=== PATIENT | female | born 1985 | race Caucasian/White ===

== ENCOUNTER 2016-10-07 21:29 | Emergency (ER) | payer OTHER ==
[~2016-10-07] VITALS: Ht 162.6 cm; Wt 60.8 kg
[~2016-10-07 21:29] MED LIST: FLONASE16 G1 BOTH NARES; MUCUS ER600 MG PO; NOHOMEMEDS; PROAIR HFA8.5 GM IH; PROVENTIL,2.5 MG/3 M IH; ROBITUSSIN NIG118 ML PO; TESSALON PERLE100 MG PO
[2016-10-07 21:54] LABS: MCH 28.9 PG (29.0-34.0); MCHC 34.5 G/DL (30.0-36.0); MCV 83.8 FL (83-99); MEAN PLAT.VOLUME 9.2 uM^3 (9.5-12.4); PLATELET COUNT 191 K/uL (156-360); RBC DIS.WIDTH-SD 36.5 % (39-53); RED BLOOD COUNT 5.01 M/uL (3.80-5.20); WHITE BLOOD COUNT 4.3 K/uL (4.1-10.2)
[2016-10-07 22:04] LABS: CHLORIDE 108 mEq/L (99-109); POTASSIUM 3.8 mEq/L (3.7-5.4); SODIUM 139 mEq/L (136-147)
[2016-10-07 22:05] LABS: GLUCOSE 106 mg/dL (70-99)
[2016-10-07 22:07] LABS: ANION GAP 9 MEQ/L (2-14)
[2016-10-07 22:09] LABS: GFR ESTIMATE (CALCULATED) > 59 mL/min/
[2016-10-07 22:10] LABS: UREA NITROGEN (BUN) 8 mg/dL (9-23)
[2016-10-07 22:13] LABS: D-DIMER ELISA 0.31 mg/L FEU (< 0.57)
[2016-10-07 22:16] LABS: TROP-I INTERPRETATION NEGATIVE; TROPONIN-I < 0.01 ng/mL (0.0-0.30)
[2016-10-07 22:30] LABS: ADD MIUA? NO; BILIRUBIN NEGATIVE; BLOOD NEGATIVE; COLOR STRAW ((YELLOW)); GLUCOSE (STRIP) NEGATIVE; INTERNAL CONTROL VALID? YES; KETONES NEGATIVE; LEUKOCYTES NEGATIVE; NITRITE NEGATIVE; PROTEIN (STRIP) NEGATIVE; SPECIFIC GRAVITY 1.006 (1.000-1.030); UCUL ADDED? NO; UROBILINOGEN 0.2 MG/DL (0.2-1.0)
[2016-10-08 00:25] VITALS: BP 139/81
== END 2016-10-08 00:26 | disposition home or self-care (01) ==
LOC: EME 21:29
PROVIDERS: Physician Assistant
DX: R00.2 Palpitations (principal)
CPT/HCPCS: 71020; 80048; 81003; 84484; 84703; 85027; 85379; 93005; 99281; 99284; J3360; J7030

== ENCOUNTER 2017-08-27 15:28 | Emergency (ER) | payer OTHER ==
[~2017-08-27] VITALS: Ht 162.6 cm; Wt 58.5 kg
[2017-08-27 17:22] LABS: HEMOGLOBIN 14.1 G/DL (11.9-15.5); MCH 29.7 PG (29.0-34.0); MCHC 35.3 G/DL (30.0-36.0); MCV 84.4 FL (83-99); PLATELET COUNT 180 K/uL (156-360); RBC DIS.WIDTH-CV 11.9 % (11.8-14.6); RBC DIS.WIDTH-SD 36.3 % (39-53); RED BLOOD COUNT 4.74 M/uL (3.80-5.20); WHITE BLOOD COUNT 3.6 K/uL (4.1-10.2)
[2017-08-27 17:35] LABS: CHLORIDE 110 mEq/L (99-109); POTASSIUM 3.3 mEq/L (3.7-5.4); SODIUM 139 mEq/L (136-147)
[2017-08-27 17:36] LABS: GLUCOSE 91 mg/dL (70-99)
[2017-08-27 17:40] LABS: CREATININE 0.7 mg/dL (0.6-1.3); GFR ESTIMATE (CALCULATED) > 59 mL/min/
[2017-08-27 17:41] LABS: UREA NITROGEN (BUN) 10 mg/dL (9-23)
[2017-08-27 17:46] LABS: TROP-I INTERPRETATION NEGATIVE; TROPONIN-I < 0.01 ng/mL (0.0-0.30)
[2017-08-27] MEDS ORDERED: ATARAX,VISTARIL50 MG PO (18:39)
[2017-08-27 18:59] VITALS: BP 120/67
== END 2017-08-27 19:00 | disposition home or self-care (01) ==
LOC: EME 15:28
DX: R00.2 Palpitations (principal); Z88.5 Allergy status to narcotic agent
CPT/HCPCS: 71046; 80048; 84484; 85027; 93005; 99281; 99283

== ENCOUNTER 2017-12-14 08:30 | Emergency (ER) | payer OTHER ==
[~2017-12-14] VITALS: Ht 162.6 cm; Wt 58.0 kg
[~2017-12-14 08:30] MED LIST changes: +ATARAX,VISTARIL50 MG PO
[2017-12-14 09:56] LABS: APPEARANCE CLEAR ((CLEAR)); BILIRUBIN NEGATIVE; BLOOD NEGATIVE; COLOR STRAW ((YELLOW)); GLUCOSE (STRIP) NEGATIVE; KETONES NEGATIVE; LEUKOCYTES NEGATIVE; NITRITE NEGATIVE; PROTEIN (STRIP) NEGATIVE; SPECIFIC GRAVITY 1.008 (1.000-1.030); UROBILINOGEN 0.2 MG/DL (0.2-1.0)
[2017-12-14 10:01] LABS: HEMATOCRIT 40.3 % (36.0-46.0); HEMOGLOBIN 13.9 G/DL (11.9-15.5); MCH 28.9 PG (29.0-34.0); MCHC 34.5 G/DL (30.0-36.0); MCV 83.8 FL (83-99); PLATELET COUNT 154 K/uL (156-360); RBC DIS.WIDTH-CV 11.9 % (11.8-14.6); RBC DIS.WIDTH-SD 36.1 % (39-53); RED BLOOD COUNT 4.81 M/uL (3.80-5.20); WHITE BLOOD COUNT 4.6 K/uL (4.1-10.2)
[2017-12-14 10:10] LABS: ALBUMIN 3.2 g/dL (3.2-4.8)
[2017-12-14 10:11] LABS: CHLORIDE 108 mEq/L (99-109); POTASSIUM 3.5 mEq/L (3.7-5.4); SODIUM 139 mEq/L (136-147)
[2017-12-14 10:13] LABS: GLUCOSE 95 mg/dL (70-99); TOTAL PROTEIN 5.2 g/dL (6.4-8.3)
[2017-12-14 10:15] LABS: TOTAL BILIRUBIN 0.3 mg/dL (0.0-1.0)
[2017-12-14 10:16] LABS: ALKALINE PHOSPHATASE 92 IU/L (3-129)
[2017-12-14 10:17] LABS: CREATININE 0.6 mg/dL (0.6-1.3); GFR ESTIMATE (CALCULATED) > 59 mL/min/
[2017-12-14 10:18] LABS: AST (GOT) 33 IU/L (2-34); UREA NITROGEN (BUN) 10 mg/dL (9-23)
[2017-12-14 10:19] LABS: ALT (GPT) 31 IU/L (3-49)
[2017-12-14 10:26] LABS: QUANTITATIVE HCG < 4.0 MIU/ML
[2017-12-14] MEDS ORDERED: AVIANE1 EACH PO (10:40)
[2017-12-14] MEDS ORDERED: HIZENTRA4 GM/20 ML SC (10:40)
[2017-12-14] MEDS ORDERED: CARAFATE1 GM PO (11:30)
[2017-12-14] MEDS ORDERED: PEPCID20 MG PO (11:30)
[2017-12-14 11:45] VITALS: BP 130/74
== END 2017-12-14 11:58 | disposition home or self-care (01) ==
LOC: EME 08:30
PROVIDERS: Physician Assistant
DX: K21.9 Gastro-esophageal reflux disease without esophagitis (principal); Z90.49 Acquired absence of other specified parts of digestive tract; Z88.5 Allergy status to narcotic agent; Z87.891 Personal history of nicotine dependence
CPT/HCPCS: 71046; 80053; 81003; 84702; 85027; 93005; 99281; 99283